=== PATIENT | female | born 1950 | race Caucasian/White ===

== ENCOUNTER 2017-04-12 16:23 | Emergency (ER) | payer OTHER ==
[~2017-04-12] VITALS: Ht 160 cm; Wt 63.5 kg
[~2017-04-12 16:23] MED LIST: CELEXA 10 MG TA10 M1; HORMONES; PREMARIN0.3 MG; PROGESTERONE100 MG
[2017-04-12] MEDS ORDERED: NORCO 5-325 TA1 EACH PO (17:31)
[2017-04-12 18:20] VITALS: BP 140/72
== END 2017-04-12 18:27 | disposition home or self-care (01) ==
LOC: ER 16:23
DX: S42.215A Unspecified nondisplaced fracture of surgical neck of left humerus, initial encounter for closed fracture (principal); S72.115A Nondisplaced fracture of greater trochanter of left femur, initial encounter for closed fracture; W18.30XA Fall on same level, unspecified, initial encounter; Y93.89 Activity, other specified; Y92.89 Other specified places as the place of occurrence of the external cause; Y99.9 Unspecified external cause status; F32.9 Major depressive disorder, single episode, unspecified; Z88.1 Allergy status to other antibiotic agents

== ENCOUNTER → 2019-01-26 | Outpatient (CLI) | payer OTHER ==
[~2019-01-26] MED LIST changes: +NORCO 5-325 TA1 EACH PO
--- NOTE | 2019-01-26 17:21 | EKG ---
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 SOFIA : 1950 Requested By: Radha Azar Order Number: [id number] MD: Taiwo Antunez Measurements Intervals [place] Rate: 60 P: 71 CO: 163 QRS: 62 QRSD: 116 T: 46 QT: 423 QTc: 423 Interpretive Statements Sinus rhythm Right ventricular conduction delay Compared to ECG 06/09/2013 03:49:32 no significant change was found Electronically Signed On 01-26-2019 17:21:29 CDT by Taiwo Antunez [email or web address] ��������������������������������������������� <ELECTRONICALLY SIGNED> ���������������������������������������� By: Taiwo Antunez MD, [facility] ��������������������������������������������� 01/26/19 1721 1516 15 Taiwo Antunez MD, FACC /EPI
== END ==
LOC: CV 14:53
DX: Z01.818 Encounter for other preprocedural examination (principal)

== ENCOUNTER → 2021-03-05 | Outpatient (CLI) | payer OTHER | LOC: LAB 13:35 | PROVIDERS: ATTEND Anesthesiology | DX: Z01.812 Encounter for preprocedural laboratory examination (principal); Z20.822 Contact with and (suspected) exposure to COVID-19 ==